=== PATIENT | female | born 1945 | race Caucasian/White ===

== ENCOUNTER 2016-08-22 08:58 | Outpatient (CLI) | payer MEDICARE, OTHER | END 2016-08-22 08:59 | disposition home or self-care (01) | DX: I25.10 Atherosclerotic heart disease of native coronary artery without angina pectoris (principal); E78.2 Mixed hyperlipidemia; Z79.899 Other long term (current) drug therapy; E55.9 Vitamin D deficiency, unspecified; R53.83 Other fatigue; I10 Essential (primary) hypertension; R73.09 Other abnormal glucose ==

== ENCOUNTER 2016-08-23 08:00 | Outpatient (CLI) | payer MEDICARE, OTHER | END 2016-08-23 23:59 | disposition home or self-care (01) | DX: R73.09 Other abnormal glucose (principal) ==

== ENCOUNTER 2016-09-03 14:00 | Outpatient (CLI) | payer MEDICARE, OTHER | END 2016-09-03 14:01 | disposition home or self-care (01) | DX: Z12.31 Encounter for screening mammogram for malignant neoplasm of breast (principal); Z85.3 Personal history of malignant neoplasm of breast ==

== ENCOUNTER 2016-09-04 13:20 | Outpatient (CLI) | payer MEDICARE, OTHER | END 2016-09-04 13:21 | disposition home or self-care (01) | DX: D72.829 Elevated white blood cell count, unspecified (principal); N39.0 Urinary tract infection, site not specified ==

== ENCOUNTER 2016-11-14 09:28 | Outpatient (CLI) | payer MEDICARE, OTHER | END 2016-11-14 09:29 | disposition home or self-care (01) | DX: I48.4 Atypical atrial flutter (principal); I10 Essential (primary) hypertension; Z95.5 Presence of coronary angioplasty implant and graft; Z98.890 Other specified postprocedural states; E78.2 Mixed hyperlipidemia ==

== ENCOUNTER 2017-07-30 14:11 | Outpatient (CLI) | payer MEDICARE, OTHER ==
[2017-07-30 14:43] LABS: ALBUMIN/GLOBULIN RATIO 1.6 (1.0-2.2); BILIRUBIN,TOTAL 0.9 mg/dL (0.2-1.0); CALCIUM 9.2 mg/dL (8.5-10.3); POTASSIUM 4.3 mmol/L (3.5-5.0); TOTAL PROTEIN 7.2 g/dL (6.7-8.2)
== END 2017-07-30 14:12 | disposition home or self-care (01) ==
LOC: LAB 14:11
PROVIDERS: ATTEND Internal Medicine Cardiovascular Disease
DX: I10 Essential (primary) hypertension (principal); Z98.890 Other specified postprocedural states; Z95.5 Presence of coronary angioplasty implant and graft; E78.2 Mixed hyperlipidemia; Z79.899 Other long term (current) drug therapy; R00.1 Bradycardia, unspecified
CPT/HCPCS: 36415; 80053; 84443

== ENCOUNTER 2017-10-08 07:29 | Outpatient (CLI) | payer MEDICARE, OTHER ==
[2017-10-08 08:16] LABS: BASOPHILS # (AUTO) 0.1 10^3/uL (0.0-0.1); BASOPHILS % (AUTO) 1.3 %; EOSINOPHILS # (AUTO) 0.1 10^3/uL (0.0-0.7); EOSINOPHILS % (AUTO) 1.7 %; HGB - HEMOGLOBIN 14.1 g/dL (12.0-16.0); LYMPHOCYTES # (AUTO) 1.2 10^3/uL (1.5-3.5); MEAN CORPUSCULAR HEMOGLOBIN 30.8 pg (27.0-31.0); MEAN CORPUSCULAR HGB CONC 34.2 g/dL (32.0-36.0); MEAN CORPUSCULAR VOLUME 89.9 fL (81.0-99.0); MEAN PLATELET VOLUME 7.9 fL (7.9-10.8); MONOCYTES # (AUTO) 0.5 10^3/uL (0.0-1.0); NEUTROPHILS # (AUTO) 3.3 10^3/uL (1.5-6.6); PLT - PLATELET COUNT 172 10^3/uL (130-450); RED BLOOD COUNT 4.57 10^6/uL (4.20-5.40); RED CELL DISTRIBUTION WIDTH 14.4 % (12.0-15.0); WHITE BLOOD COUNT 5.2 x10^3/uL (4.8-10.8)
[2017-10-08 08:26] LABS: ALBUMIN/GLOBULIN RATIO 1.5 (1.0-2.2); ALKALINE PHOSPHATASE 74 IU/L (42-121); ALT ALANINE AMINOTRANSFERASE 26 IU/L (10-60); AST ASPARTATE AMINOTRANSFERASE 27 IU/L (10-42); BILIRUBIN,TOTAL 0.7 mg/dL (0.2-1.0); BUN - BLOOD UREA NITROGEN 14 mg/dL (6-20); CALCIUM 9.5 mg/dL (8.5-10.3); CARBON DIOXIDE - CO2 24 mmol/L (21-32); CHLORIDE 103 mmol/L (101-111); CHOL/HDL RATIO 3.8 (<4.4); CHOLESTEROL 168 mg/dL; CREATININE 0.8 mg/dL (0.4-1.0); GFR - MDRD 70 (>89); GLUCOSE 122 mg/dL (70-100); HDL CHOLESTEROL 44 mg/dL; LDL CHOLESTEROL,CALCULATED 89 mg/dL; SODIUM 138 mmol/L (135-145); TOTAL PROTEIN 6.7 g/dL (6.7-8.2); VLDL CHOLESTEROL 35 mg/dL
[2017-10-08 10:05] LABS: HB2 TOTAL 14.9 g/dL; HEMOGLOBIN A1C 0.63 g/dL
== END 2017-10-08 07:30 | disposition home or self-care (01) ==
LOC: LAB 07:29
PROVIDERS: ATTEND Physician Assistant Medical
DX: Z79.899 Other long term (current) drug therapy (principal); E55.9 Vitamin D deficiency, unspecified; R73.01 Impaired fasting glucose; I48.91 Unspecified atrial fibrillation; I10 Essential (primary) hypertension
CPT/HCPCS: 36415; 80053; 80061; 82306; 83036; 83721; 85025

== ENCOUNTER 2018-02-18 15:22 | Outpatient (CLI) | payer MEDICARE, OTHER | END 2018-02-18 15:23 | disposition home or self-care (01) | LOC: LAB.R 15:22 | PROVIDERS: ATTEND Physician Assistant Medical | DX: N30.00 Acute cystitis without hematuria (principal) | CPT/HCPCS: 87086; 87181 ==

== ENCOUNTER 2018-04-14 08:28 | Outpatient (CLI) | payer MEDICARE, OTHER ==
[2018-04-14 09:00] LABS: CALCIUM 9.5 mg/dL (8.5-10.3); CREATININE 0.9 mg/dL (0.4-1.0)
== END 2018-04-14 08:29 | disposition home or self-care (01) ==
LOC: LAB 08:28
PROVIDERS: ATTEND Internal Medicine Cardiovascular Disease
DX: I10 Essential (primary) hypertension (principal)
CPT/HCPCS: 36415; 80048

== ENCOUNTER 2018-05-06 13:19 | Outpatient (CLI) | payer MEDICARE, OTHER ==
[2018-05-06 14:10] LABS: CALCIUM 9.2 mg/dL (8.5-10.3); CREATININE 0.8 mg/dL (0.4-1.0)
== END 2018-05-06 13:20 | disposition home or self-care (01) ==
LOC: LAB 13:19
PROVIDERS: ATTEND Internal Medicine Cardiovascular Disease
DX: I10 Essential (primary) hypertension (principal); E87.6 Hypokalemia
CPT/HCPCS: 36415; 80048

== ENCOUNTER 2018-06-25 15:03 | Outpatient (CLI) | payer MEDICARE, OTHER ==
[2018-06-25 17:29] LABS: RHEUMATOID FACTOR NEGATIVE (Negative)
== END 2018-06-25 15:04 ==
LOC: LAB.R 15:03
PROVIDERS: ATTEND Physician Assistant Medical
DX: M25.50 Pain in unspecified joint (principal)
CPT/HCPCS: 85651; 86038; 86140; 86200; 86430

== ENCOUNTER 2018-06-29 12:48 | Outpatient (CLI) | payer MEDICARE, OTHER ==
--- NOTE | 2018-06-29 15:17 | XRAY Report ---
Reason: ANKLE PAIN, RIGHT Procedure Date: 06/29/2018 Accession Number: [id number] / [id number] Procedure: XR - Ankle 3 View RT CPT Code: FULL RESULT: EXAM: RIGHT ANKLE RADIOGRAPHY EXAM DATE: 06/29/2018 01:10 PM. CLINICAL HISTORY: Ankle pain, right. COMPARISON: None. TECHNIQUE: 3 views. FINDINGS: There is no fracture or dislocation. The ankle mortise is symmetric. The medial malleolus region is marked with a BB. In this region, there is focal soft tissue swelling which corresponds to a mild bony protuberance. There is no periosteal reaction or suspicious osseous mass. IMPRESSION: Bony protuberance and focal soft tissue swelling. If there is concern for a primary soft tissue mass or collection in the region, consider focal ultrasound. The radiologist feels that the benign-appearing bony protuberance in conjunction with a history of impingement on shoes/boots otherwise represents a satisfactory radiographic explanation for the overlying soft tissue swelling. [facility]
== END 2018-06-29 12:49 | disposition home or self-care (01) ==
LOC: DI 12:48
PROVIDERS: ATTEND Physician Assistant Medical
DX: M25.571 Pain in right ankle and joints of right foot (principal); R22.41 Localized swelling, mass and lump, right lower limb

== ENCOUNTER 2018-07-25 09:50 | Outpatient (CLI) | payer MEDICARE, OTHER ==
--- NOTE | 2018-07-26 16:56 | MRI Report ---
Reason: ANKLE JOINT PAIN Procedure Date: 07/25/2018 Accession Number: [id number] / [id number] Procedure: MRI - Ankle RT W/O CPT Code: FULL RESULT: EXAM: RIGHT ANKLE/HINDFOOT MRI WITHOUT CONTRAST. EXAM DATE: 07/25/2018 11:21 AM. CLINICAL HISTORY: Right ankle pain and swelling for several weeks. COMPARISON: 06/29/2018 radiograph. TECHNIQUE: Multiplanar, multisequence T1-weighted and fluid-sensitive sequences of the ankle/hindfoot without contrast. Other: None. FINDINGS: Bones: No fractures or subluxations. No marrow edema. No bone lesions. Articular Cartilage: Unremarkable. Ligaments: The anterior and posterior tibiofibular, anterior and posterior talofibular, and calcaneofibular ligaments are intact. The deep and superficial deltoid and spring ligaments are intact. Anterior Tendons: The tibialis anterior, extensor hallucis longus, and extensor digitorum longus tendons are unremarkable. Medial Tendons: The tibialis posterior, flexor digitorum longus, and flexor hallucis longus tendons are unremarkable. Lateral Tendons: The peroneus brevis and longus are unremarkable. Achilles Tendon: Moderate Achilles tendinosis thickening and edema is present. Musculature: No edema or fatty atrophy. Other: No effusions. The contents of the sinus tarsi and tarsal tunnel are unremarkable. The plantar fascia is moderately thickened with edema around it. The subcutaneous tissues are unremarkable. IMPRESSION: 1. Moderate plantar fasciitis. 2. Moderate Achilles tendinosis. [facility] MUSCULOSKELETAL RADIOLOGY SECTION
== END 2018-07-25 09:51 | disposition home or self-care (01) ==
LOC: DI 09:50
PROVIDERS: ATTEND Orthopaedic Surgery Sports Medicine
DX: M25.571 Pain in right ankle and joints of right foot (principal); M72.2 Plantar fascial fibromatosis; M67.971 Unspecified disorder of synovium and tendon, right ankle and foot

== ENCOUNTER 2018-08-18 16:16 | Outpatient (CLI) | payer MEDICARE, OTHER ==
--- NOTE | 2018-08-19 08:33 | Mammography Report ---
Reason: SCREENING DANIELLA Procedure Date: 08/18/2018 Accession Number: [id number] / [id number] Procedure: [facility] - Screening Mammo w/Matt CPT Code: FULL RESULT: EXAM: Screening Mammo w/Matt DATE: 08/18/2018 4:52 PM CLINICAL HISTORY: Screening encounter. Personal history of breast cancer status post left breast lumpectomy in 2004 with chemoradiation. TECHNIQUE: Bilateral CC, laterally exaggerated CC, MLO views were obtained. COMPARISON: 09/03/2016 through 07/01/2013. FINDINGS: The breasts demonstrate scattered fibroglandular densities bilaterally. Postsurgical and posttreatment changes are seen in the left breast. Typically benign calcifications of the coarse and vascular type are seen in the right breast. No suspicious masses, clustered microcalcifications, or regions of architectural distortion are identified. IMPRESSION: Benign findings RECOMMENDATION: Routine annual screening unless otherwise clinically indicated. BIRADS CATEGORY 2: Benign findings STANDARD QUALIFYING STATEMENTS: 1. This examination was not reviewed with the aid of Computer-Aided Detection (CAD). 2. A negative or benign imaging report should not preclude biopsy if clinically suspicious findings are present. 3. Dense breasts may obscure an underlying neoplasm. 4. This examination was reviewed with the aid of 3D breast imaging (tomosynthesis).
== END 2018-08-18 16:17 | disposition home or self-care (01) ==
LOC: DI 16:16
DX: Z12.31 Encounter for screening mammogram for malignant neoplasm of breast (principal); Z85.3 Personal history of malignant neoplasm of breast
CPT/HCPCS: 77063; 77067

== ENCOUNTER 2018-10-09 15:47 | Outpatient (CLI) | payer MEDICARE, OTHER ==
[2018-10-09 16:11] LABS: CALCIUM 9.7 mg/dL (8.5-10.3); CREATININE 0.9 mg/dL (0.4-1.0); MAGNESIUM 1.8 mg/dL (1.7-2.8)
== END 2018-10-09 15:48 | disposition home or self-care (01) ==
LOC: LAB 15:47
PROVIDERS: ATTEND Internal Medicine Cardiovascular Disease
DX: I48.0 Paroxysmal atrial fibrillation (principal)
CPT/HCPCS: 36415; 80048; 83735

== ENCOUNTER 2019-01-06 08:00 | Outpatient (CLI) | payer MEDICARE, OTHER | END 2019-01-06 23:59 | disposition home or self-care (01) | LOC: LAB.R 08:00 | PROVIDERS: ATTEND Nurse Practitioner | DX: R30.0 Dysuria (principal); R32 Unspecified urinary incontinence | CPT/HCPCS: 87086 ==

== ENCOUNTER 2019-01-11 08:41 | Outpatient (CLI) | payer MEDICARE, OTHER ==
[2019-01-11 09:22] LABS: BASOPHILS % (AUTO) 0.6 %; EOSINOPHILS # (AUTO) 0.2 10^3/uL (0.0-0.7); EOSINOPHILS % (AUTO) 3.6 %; HGB - HEMOGLOBIN 14.6 g/dL (12.0-16.0); LYMPHOCYTES # (AUTO) 1.5 10^3/uL (1.5-3.5); LYMPHOCYTES % (AUTO) 24.1 %; MEAN CORPUSCULAR HEMOGLOBIN 29.3 pg (27.0-31.0); MEAN CORPUSCULAR VOLUME 88.9 fL (81.0-99.0); MEAN PLATELET VOLUME 8.4 fL (7.9-10.8); MONOCYTES # (AUTO) 0.6 10^3/uL (0.0-1.0); MONOCYTES % (AUTO) 10.5 %; NEUTROPHILS # (AUTO) 3.7 10^3/uL (1.5-6.6); NEUTROPHILS % (AUTO) 61.2 %; PLT - PLATELET COUNT 204 10^3/uL (130-450); RED BLOOD COUNT 4.96 10^6/uL (4.20-5.40); RED CELL DISTRIBUTION WIDTH 16.3 % (12.0-15.0); WHITE BLOOD COUNT 6.1 x10^3/uL (4.8-10.8)
[2019-01-11 09:48] LABS: ALBUMIN 4.2 g/dL (3.2-5.5); ALBUMIN/GLOBULIN RATIO 1.4 (1.0-2.2); ALKALINE PHOSPHATASE 74 IU/L (42-121); ALT ALANINE AMINOTRANSFERASE 18 IU/L (10-60); AST ASPARTATE AMINOTRANSFERASE 26 IU/L (10-42); BILIRUBIN,TOTAL 1.1 mg/dL (0.2-1.0); BUN - BLOOD UREA NITROGEN 16 mg/dL (6-20); CALCIUM 9.5 mg/dL (8.5-10.3); CARBON DIOXIDE - CO2 24 mmol/L (21-32); CHLORIDE 102 mmol/L (101-111); CHOL/HDL RATIO 3.5 (<4.4); CHOLESTEROL 145 mg/dL; CREATININE 0.9 mg/dL (0.4-1.0); GFR - MDRD 61 (>89); GLUCOSE 143 mg/dL (70-100); HDL CHOLESTEROL 41 mg/dL; LDL CHOLESTEROL,CALCULATED 78 mg/dL; LDL/HDL RATIO 1.9 (<4.4); SODIUM 139 mmol/L (135-145); TOTAL PROTEIN 7.2 g/dL (6.7-8.2); VLDL CHOLESTEROL 26 mg/dL
== END 2019-01-11 08:42 | disposition home or self-care (01) ==
LOC: LAB 08:41
PROVIDERS: ATTEND Nurse Practitioner
DX: E55.9 Vitamin D deficiency, unspecified (principal); I48.91 Unspecified atrial fibrillation; R73.01 Impaired fasting glucose; I10 Essential (primary) hypertension; E78.2 Mixed hyperlipidemia; Z79.899 Other long term (current) drug therapy
CPT/HCPCS: 36415; 80053; 80061; 83721; 84443; 85025

== ENCOUNTER 2019-01-29 09:22 | Outpatient (CLI) | payer MEDICARE, OTHER ==
[2019-01-29 09:50] LABS: CALCIUM 9.4 mg/dL (8.5-10.3); CREATININE 0.8 mg/dL (0.4-1.0)
[2019-01-29 09:59] LABS: HEMOGLOBIN A1C 0.74 g/dL; HEMOGLOBIN A1C % 6.7 % (4.6-6.2)
== END 2019-01-29 09:23 | disposition home or self-care (01) ==
LOC: LAB 09:22
PROVIDERS: ATTEND Nurse Practitioner
DX: R73.01 Impaired fasting glucose (principal); E87.6 Hypokalemia
CPT/HCPCS: 36415; 80048; 83036

== ENCOUNTER 2019-02-01 11:39 | Day surgery (SDC) | payer MEDICARE, OTHER ==
[2019-02-01] MEDS ORDERED: LACTATED RINGERS 1,000 ML IV ONE (11:45)
[2019-02-01] MEDS ORDERED: MIDAZOLAM 2 MG/2 ML VIAL IVP ONE (14:02)
[2019-02-01] MEDS ORDERED: LIDO GARGLE 30 ML BOTTLE ONE (14:02)
[2019-02-01] MEDS ORDERED: fentaNYL 250 MCG/5 ML VIAL IVP ONE (14:02)
[2019-02-01] MEDS ORDERED: LIDO GARGLE 30 ML BOTTLE PO ONE (14:16)
[2019-02-01 15:22] VITALS: BP 113/87
== END 2019-02-01 11:40 | disposition home or self-care (01) ==
LOC: SDS 11:39
PROVIDERS: ATTEND Internal Medicine Gastroenterology
PROC: 0DB78ZX Excision of Stomach, Pylorus, Via Natural or Artificial Opening Endoscopic, Diagnostic (ICD-10-PCS; 2019-02-01)
PROC: 0DB58ZX Excision of Esophagus, Via Natural or Artificial Opening Endoscopic, Diagnostic (ICD-10-PCS; 2019-02-01)
PROC: 0DJD8ZZ Inspection of Lower Intestinal Tract, Via Natural or Artificial Opening Endoscopic (ICD-10-PCS; principal; 2019-02-01 12:45)
PROC: 0DB98ZX Excision of Duodenum, Via Natural or Artificial Opening Endoscopic, Diagnostic (ICD-10-PCS; 2019-02-01 12:45)
DX: R10.32 Left lower quadrant pain (principal); R68.81 Early satiety; K21.9 Gastro-esophageal reflux disease without esophagitis; K31.9 Disease of stomach and duodenum, unspecified; K44.9 Diaphragmatic hernia without obstruction or gangrene; K57.30 Diverticulosis of large intestine without perforation or abscess without bleeding; I48.91 Unspecified atrial fibrillation; I10 Essential (primary) hypertension; I25.10 Atherosclerotic heart disease of native coronary artery without angina pectoris; Z85.3 Personal history of malignant neoplasm of breast; Z86.010 Personal history of colon polyps; E66.9 Obesity, unspecified; Z68.35 Body mass index [BMI] 35.0-35.9, adult
CPT/HCPCS: 36415; 43239; 45378; 83690; A9270; J3010; J7120

== ENCOUNTER 2019-02-08 10:49 | Outpatient (CLI) | payer MEDICARE, OTHER ==
[2019-02-08] MEDS ORDERED: IOVERSOL 320 50 ML VIAL ONE (11:02)
[2019-02-08] MEDS ORDERED: IOVERSOL 320 100 ML VIAL IVP ONE ×2 (11:02→12:23)
[2019-02-08] MEDS ORDERED: IOVERSOL 320 50 ML VIAL PO ONE (12:23)
--- NOTE | 2019-02-08 17:51 | CT Report ---
Reason: EVAL HIATAL HERNIA,EARLY SATIETY Procedure Date: 02/08/2019 Accession Number: [id number] / [id number] Procedure: CT - Abdomen/Pelvis W CPT Code: FULL RESULT: EXAM: CT ABDOMEN AND PELVIS EXAM DATE: 02/08/2019 12:20 PM. CLINICAL HISTORY: EVAL HIATAL Hernia, early SATIETY. COMPARISONS: None. TECHNIQUE: Routine helical CT imaging was performed through the abdomen and pelvis. IV contrast: 100 cc Optiray 320. Enteric contrast: Yes. Reconstructions: Coronal and sagittal. In accordance with CT protocol optimization, one or more of the following dose reduction techniques were utilized for this exam: automated exposure control, adjustment of mA and/or KV based on patient size, or use of iterative reconstructive technique. FINDINGS: Lung Bases: Large axial type hiatal hernia containing the fundus and upper body of the stomach Liver: Normal. No masses. Gallbladder/Bile Ducts: Layering sludge versus tiny stones. Spleen: Normal. Accessory spleen present. Pancreas: Normal. Adrenal Glands: Normal. Kidneys: 3.2 x 2.9 cm right renal cyst; other smaller cysts present bilaterally.. No masses or hydronephrosis. Peritoneal Cavity/Bowel: No free fluid, free air or adenopathy. No acute inflammatory process. The appendix is not definitely seen. Incompletely distended/opacified colon. Pelvic Organs: The bladder and pelvic organs are unremarkable except for uterine calcifications. Vasculature: No aneurysms or other significant abnormality. Bones: Degenerative grade 1 anterior listhesis L4 on L5 with disk space narrowing and vacuum phenomenon at this level. Scattered other degenerative changes. Other: None. IMPRESSION: 1. Moderate hiatal hernia. 2. Renal cysts 3. Atrophic appearing uterus with calcifications. 4. Degenerative change in the spine with anterior listhesis L4 on L5. 5. Incompletely distended/opacified colon; a colonic lesion is not excluded by this study. Suggest correlation with history of colonoscopy and anemia. 6. Layering sludge versus tiny gallbladder stones could be further evaluated by ultrasound if clinically warranted. [facility] ADDENDUM: 02/15/19 15:27 The study is additionally reviewed with the referring surgeon Dr. Sidhu. Underlying, is a sliding-type hiatal hernia with a component of the stomach that arises from the fundus of the stomach having taken a diverticulum-like configuration. This portion of the stomach resides within the chest, has a thickened wall at its neck and appears to be twisted and contains fecalized material. This portion of the fundus has therefore undergone a organoaxial-type rotation with imaging appearance supportive of the current plan for surgical correction.
== END 2019-02-08 10:50 | disposition home or self-care (01) ==
LOC: DI 10:49
PROVIDERS: ATTEND Internal Medicine Gastroenterology
DX: K44.9 Diaphragmatic hernia without obstruction or gangrene (principal); Q61.02 Congenital multiple renal cysts; M47.816 Spondylosis without myelopathy or radiculopathy, lumbar region; M43.16 Spondylolisthesis, lumbar region
CPT/HCPCS: 74177; Q9967

== ENCOUNTER 2019-03-19 10:07 | Outpatient (CLI) | payer MEDICARE, OTHER ==
[2019-03-19 10:37] LABS: CALCIUM 10.4 mg/dL (8.5-10.3); CREATININE 0.7 mg/dL (0.4-1.0); MAGNESIUM 1.9 mg/dL (1.7-2.8)
== END 2019-03-19 10:08 | disposition home or self-care (01) ==
LOC: LAB 10:07
PROVIDERS: ATTEND Physician Assistant Medical
DX: I48.0 Paroxysmal atrial fibrillation (principal)
CPT/HCPCS: 36415; 80048; 83735

== ENCOUNTER 2019-05-03 08:01 | Outpatient (CLI) | payer MEDICARE, OTHER ==
[2019-05-03 08:33] LABS: HB2 TOTAL 14.7 g/dL; HEMOGLOBIN A1C 0.58 g/dL; HEMOGLOBIN A1C % 5.8 % (4.6-6.2)
== END 2019-05-03 08:02 | disposition home or self-care (01) ==
LOC: LAB 08:01
PROVIDERS: ATTEND Nurse Practitioner
DX: R73.01 Impaired fasting glucose (principal)
CPT/HCPCS: 36415; 83036

== ENCOUNTER 2019-07-29 09:02 | Outpatient (CLI) | payer MEDICARE, OTHER ==
[2019-07-29 09:23] LABS: HGB - HEMOGLOBIN 13.9 g/dL (12.0-16.0); MEAN CORPUSCULAR HEMOGLOBIN 30.5 pg (27.0-31.0); MEAN CORPUSCULAR HGB CONC 33.1 g/dL (32.0-36.0); MEAN CORPUSCULAR VOLUME 92.1 fL (81.0-99.0); MEAN PLATELET VOLUME 9.5 fL (7.9-10.8); RED BLOOD COUNT 4.56 10^6/uL (4.20-5.40); RED CELL DISTRIBUTION WIDTH 13.3 % (12.0-15.0); WHITE BLOOD COUNT 5.2 x10^3/uL (4.8-10.8)
[2019-07-29 09:29] LABS: CALCIUM 9.6 mg/dL (8.5-10.3); CREATININE 0.8 mg/dL (0.4-1.0)
== END 2019-07-29 09:03 | disposition home or self-care (01) ==
LOC: LAB 09:02
PROVIDERS: ATTEND Surgery
DX: K44.9 Diaphragmatic hernia without obstruction or gangrene (principal)
CPT/HCPCS: 36415; 80048; 85027

== ENCOUNTER 2019-10-13 14:13 | Outpatient (CLI) | payer MEDICARE, OTHER ==
[2019-10-13 18:14] LABS: RHEUMATOID FACTOR NEGATIVE (Negative)
== END 2019-10-13 14:14 | disposition home or self-care (01) ==
LOC: LAB 14:13
PROVIDERS: ATTEND Nurse Practitioner
DX: M25.512 Pain in left shoulder (principal)
CPT/HCPCS: 36415; 85651; 86140; 86430

== ENCOUNTER 2020-09-20 07:53 | Outpatient (CLI) | payer MEDICARE, OTHER ==
--- NOTE | 2020-09-20 15:37 | Ultrasound Report ---
PROCEDURE: Head or Neck Soft Tissue INDICATIONS: THYROID NODULE TECHNIQUE: Real time scanning was performed of the neck region of interest, with image documentation . COMPARISON: None. FINDINGS: Right thyroid lobe: 3.2 x 1.6 x 1.7 cm. Less than 5 mm nodules are noted. Otherwise homogeneous echot exture. Left thyroid lobe: 5.0 x 1.4 x 1.6 cm. Nodules are present. Please see below for detail. Isthmus: 4.2 mm in thickness. Nodule 1 Location: Left mid; Size: 1.2 x 0.8 x 1.1 cm; Composition: spongiform; Echogenicity: Hypoechoic; Shape: Wider than tall. Margins: Smooth Calcifications: punctate. ACR TI RADS score: 5; TR4 moderately suspicious Nodule 2 Location: Left mid medial; Size: 0.5 x 0.3 x 0.6 cm; Composition: Solid; Echogenicity: Hypoechoic; Shape: Wider than tall. Margins: Smooth Calcifications: punctate. ACR TI RADS score: 7; TR 5, highly suspicious Nodule 13Location: Left mid anterior; Size: 0.5 x 0.3 x 0.4 cm; Composition: Predominantly cystic; Echogenicity: Anechoic; Shape: Wider than tall. Margins: Smooth Calcifications: none. ACR TI RADS score: 0; TR1, benign IMPRESSION: 1. Bilateral thyroid nodules. 2. Nodular #2 is a TR5 nodule. There is of its relative small size, recommend close imaging follow-up . Please see enclosed follow-up recommendation. TR1: no FNA required TR2: no FNA required TR3: ?1.5 cm follow up, ?2.5 cm FNA follow up: 1, 3 and 5 years TR4: ?1.0 cm follow up, ?1.5 cm FNA follow up: 1, 2, 3 and 5 years TR5: ?0.5 cm follow up, ?1.0 cm FNA annual follow up for up to 5 years Reviewed by: Deandre Culver MD on 09/20/2020 3:36 PM PST Approved by: Deandre Culver MD on 09/20/2020 3:36 PM PST Station ID: [id number]
== END 2020-09-20 07:54 | disposition home or self-care (01) ==
LOC: DI 07:53
PROVIDERS: ATTEND Nurse Practitioner
DX: E04.2 Nontoxic multinodular goiter (principal)

== ENCOUNTER 2021-11-30 11:30 | Outpatient (CLI) | payer MEDICARE, OTHER ==
[2021-11-30 11:48] LABS: BASOPHILS # (AUTO) 0.1 10^3/uL (0.0-0.1); BASOPHILS % (AUTO) 0.9 %; EOSINOPHILS # (AUTO) 0.2 10^3/uL (0.0-0.7); HCT - HEMATOCRIT 44.6 % (37.0-47.0); LYMPHOCYTES # (AUTO) 1.2 10^3/uL (1.5-3.5); LYMPHOCYTES % (AUTO) 17.8 %; MEAN CORPUSCULAR HEMOGLOBIN 30.2 pg (27.0-31.0); MEAN CORPUSCULAR HGB CONC 33.6 g/dL (32.0-36.0); MEAN CORPUSCULAR VOLUME 89.9 fL (81.0-99.0); MEAN PLATELET VOLUME 9.3 fL (7.9-10.8); MONOCYTES # (AUTO) 0.6 10^3/uL (0.0-1.0); MONOCYTES % (AUTO) 8.9 %; NEUTROPHILS # (AUTO) 4.7 10^3/uL (1.5-6.6); NEUTROPHILS % (AUTO) 69.1 %; PLT - PLATELET COUNT 204 10^3/uL (130-450); RED BLOOD COUNT 4.96 10^6/uL (4.20-5.40); RED CELL DISTRIBUTION WIDTH 13.8 % (12.0-15.0); WHITE BLOOD COUNT 6.8 x10^3/uL (4.8-10.8)
[2021-11-30 12:07] LABS: ALBUMIN/GLOBULIN RATIO 1.3 (1.0-2.2); ALKALINE PHOSPHATASE 78 IU/L (42-121); ALT ALANINE AMINOTRANSFERASE 21 IU/L (10-60); AST ASPARTATE AMINOTRANSFERASE 24 IU/L (10-42); BILIRUBIN,TOTAL 1.5 mg/dL (0.2-1.0); BUN - BLOOD UREA NITROGEN 15 mg/dL (6-20); CALCIUM 9.3 mg/dL (8.5-10.3); CARBON DIOXIDE - CO2 24 mmol/L (21-32); CHLORIDE 105 mmol/L (101-111); CHOL/HDL RATIO 2.5 (<4.4); CHOLESTEROL 129 mg/dL; CREATININE 0.6 mg/dL (0.4-1.0); GFR - MDRD 97 (>89); GLUCOSE 151 mg/dL (70-100); HDL CHOLESTEROL 51 mg/dL; LDL CHOLESTEROL,CALCULATED 56 mg/dL; LDL/HDL RATIO 1.1 (<4.4); POTASSIUM 4.3 mmol/L (3.5-5.0); SODIUM 138 mmol/L (135-145); TOTAL PROTEIN 7.2 g/dL (6.7-8.2); TRIGLYCERIDES 112 mg/dL; VLDL CHOLESTEROL 22 mg/dL
[2021-11-30 12:18] LABS: THYROID STIMULATING HORMONE 2.03 uIU/mL (0.34-5.60)
== END 2021-11-30 11:31 | disposition home or self-care (01) ==
LOC: LAB 11:30
PROVIDERS: ATTEND Nurse Practitioner
DX: I10 Essential (primary) hypertension (principal); E78.2 Mixed hyperlipidemia
CPT/HCPCS: 36415; 80053; 80061; 83721; 84443; 85025

== ENCOUNTER 2022-01-01 14:18 | Outpatient (CLI) | payer MEDICARE, OTHER ==
--- NOTE | 2022-01-01 17:07 | Ultrasound Report ---
PROCEDURE: Head or Neck Soft Tissue INDICATIONS: THYROID NODULE TECHNIQUE: Real-time scanning was performed of the thyroid gland, with image documentation. COMPARISON: 09/20/2020 FINDINGS: Right: Thyroid lobe measures 3.7 x 1.2 x 1.6 cm, and is heterogeneous in echotexture. Left: Thyroid lobe measures 4.4 x 1.7 x 1.5 cm, and is heterogeneous in echotexture. Isthmus: 2.4 mm thick. Nodule number: One Location: Mid pole left thyroid lobe Size: 1.3 x 1 x 1.1 cm, previously measures 1.2 x 0.8 x 1.1 cm. Composition: Predominantly cystic Echogenicity: Hypoechoic Shape: wider than tall. Margins: Lobulated Echogenic foci: None Total points: 5 ACR TI-RADS category: Moderately suspicious Nodule number: Two Location: Medial aspect of mid pole left thyroid lobe Size: 0.5 x 0.3 x 0.5 cm. Unchanged from prior study Composition: Predominantly solid Echogenicity: Hypoechoic Shape: wider than tall. Margins: Smooth Echogenic foci: None Total points: 4 ACR TI-RADS category: Moderately suspicious Nodule number: Three Location: Anterior aspect of mid pole left thyroid lobe Size: 0.6 x 0.3 x 0.5 cm, previously 0.5 x 0.3 x 0.4 cm. Composition: Predominantly cystic Echogenicity: Hypoechoic Shape: wider than tall. Margins: Smooth Echogenic foci: None Total points: 2 ACR TI-RADS category: Not suspicious IMPRESSION: Patient's known left thyroid nodules are essentially unchanged in size and appearance. No new thyroid nodule is seen. Continued ultrasound follow-up is recommended. ACR TI-RADS definitions and recommendations: TI-RADS 1 (benign): 0 points. FNA not needed. TI-RADS 2 (not suspicious): 2 points. FNA not needed. TI-RADS 3 (mildly suspicious): 3 points. "FNA if 2.5 cm or larger, follow up if 1.5 cm or larger (at 1, 3, and 5 years). TI-RADS 4 (moderately suspicious): 4-6 points. "FNA if 1.5 cm or larger, follow up if 1 cm or larger (at 1, 2, 3, and 5 years). TI-RADS 5 (highly suspicious): 7 points or more. "FNA if 1 cm or larger, follow up if 0.5 cm or larger (every year for 5 years). Reviewed by: Maximus Kumar MD on 01/01/2022 5:06 PM PDT Approved by: Maximus Kumar MD on 01/01/2022 5:06 PM PDT Station ID: [id number]
== END 2022-01-01 14:19 | disposition home or self-care (01) ==
LOC: DI 14:18
PROVIDERS: ATTEND Nurse Practitioner
DX: E04.2 Nontoxic multinodular goiter (principal)

== ENCOUNTER 2022-03-13 08:19 | Outpatient (CLI) | payer MEDICARE, OTHER ==
[2022-03-13 08:50] LABS: ESTIMATED AVERAGE GLUCOSE 128 mg/dL (70-100); HEMOGLOBIN A1c% 6.1 % (4.27-6.07)
[2022-03-13 11:14] LABS: CREATININE,URINE 85.6 mg/dL; MICROALBUM/CREATININE RATIO,UR 22.2 ug/mg (<30.0); MICROALBUMIN,URINE 1.9 mg/dL (0-300.0)
== END 2022-03-13 08:20 | disposition home or self-care (01) ==
LOC: LAB 08:19
PROVIDERS: ATTEND Nurse Practitioner
DX: E11.42 Type 2 diabetes mellitus with diabetic polyneuropathy (principal)
CPT/HCPCS: 36415; 82043; 82570; 82607; 83036

== ENCOUNTER 2022-09-12 09:56 | Outpatient (CLI) | payer MEDICARE, OTHER ==
[2022-09-12 10:29] LABS: CALCIUM 9.1 mg/dL (8.5-10.3); CREATININE 0.6 mg/dL (0.4-1.0); POTASSIUM 4.3 mmol/L (3.5-5.0)
== END 2022-09-12 09:57 | disposition home or self-care (01) ==
LOC: LAB 09:56
PROVIDERS: ATTEND Physician Assistant Medical
DX: I48.0 Paroxysmal atrial fibrillation (principal)
CPT/HCPCS: 36415; 80048; 83735

== ENCOUNTER 2022-09-17 12:33 | Outpatient (CLI) | payer MEDICARE, OTHER ==
[2022-09-17 12:57] LABS: BASOPHILS # (AUTO) 0.1 10^3/uL (0.0-0.1); BASOPHILS % (AUTO) 0.7 %; EOSINOPHILS # (AUTO) 0.1 10^3/uL (0.0-0.7); EOSINOPHILS % (AUTO) 0.8 %; HCT - HEMATOCRIT 44.5 % (37.0-47.0); HGB - HEMOGLOBIN 14.5 g/dL (12.0-16.0); LYMPHOCYTES # (AUTO) 0.8 10^3/uL (1.5-3.5); LYMPHOCYTES % (AUTO) 7.8 %; MEAN CORPUSCULAR HEMOGLOBIN 29.8 pg (27.0-31.0); MEAN CORPUSCULAR HGB CONC 32.6 g/dL (32.0-36.0); MEAN CORPUSCULAR VOLUME 91.4 fL (81.0-99.0); MEAN PLATELET VOLUME 9.9 fL (7.9-10.8); MONOCYTES % (AUTO) 9.7 %; NEUTROPHILS % (AUTO) 80.8 %; PLT - PLATELET COUNT 201 10^3/uL (130-450); RED BLOOD COUNT 4.87 10^6/uL (4.20-5.40); RED CELL DISTRIBUTION WIDTH 14.1 % (12.0-15.0); WHITE BLOOD COUNT 9.8 x10^3/uL (4.8-10.8)
[2022-09-17 13:32] LABS: THYROID STIMULATING HORMONE 1.34 uIU/mL (0.34-5.60)
[2022-09-17 13:37] LABS: ESTIMATED AVERAGE GLUCOSE 134 mg/dL (70-100); HEMOGLOBIN A1c% 6.3 % (4.27-6.07)
--- NOTE | 2022-09-17 15:59 | DEXA Report ---
PROCEDURE: Dexa Spine and/or Hip INDICATIONS: POST MENOPAUSAL TECHNIQUE: Dual energy x-ray absorptiometry (DXA) was performed on a Film Fresh System. Regions measur ed are the AP Spine, femoral neck, and if needed forearm. COMPARISON: None. FINDINGS: Lumbar Spine: Bone Mineral Density 1.2-0 g/cm/cm,T score 0.3, normal Left Femoral Neck: Bone Mineral Density 0.873 g/cm/cm, T score -2.1, osteopenia Left Hip: Bone Mineral Density 1.002 g/cm/cm,T score 0.0, normal (T score greater or equal to -1.0: NORMAL) (T score from -1.1 to -2.4: OSTEOPENIA) (T score less than or equal to -2.5 to: OSTEOPOROSIS) Impression: Left femoral neck osteopenia. Patients with diagnosis of osteoporosis or osteopenia should have regular bone mineral density assess ment. For those eligible for Medicare, routine testing is allowed once every 2 years. Testing frequ ency can be increased for patients who have rapidly progressing disease or for those who are receivin g medical therapy to restore bone mass. Reviewed by: Moira Decker MD, PhD on 09/17/2022 3:58 PM PST Approved by: Moira Decker MD, PhD on 09/17/2022 3:58 PM PST Station ID: [id number]
[2022-09-17 19:26] LABS: ALBUMIN 4.1 g/dL (3.2-5.5); ALBUMIN/GLOBULIN RATIO 1.5 (1.0-2.2); ALKALINE PHOSPHATASE 86 IU/L (42-121); ALT ALANINE AMINOTRANSFERASE 33 IU/L (10-60); AST ASPARTATE AMINOTRANSFERASE 38 IU/L (10-42); BILIRUBIN,TOTAL 1.1 mg/dL (0.2-1.0); BUN - BLOOD UREA NITROGEN 16 mg/dL (6-20); CALCIUM 9.7 mg/dL (8.5-10.3); CARBON DIOXIDE - CO2 23 mmol/L (21-32); CHLORIDE 100 mmol/L (101-111); CHOL/HDL RATIO 2.9 (<4.4); CHOLESTEROL 147 mg/dL; CREATININE 0.7 mg/dL (0.4-1.0); GFR - MDRD 81 (>89); GLUCOSE 144 mg/dL (70-100); HDL CHOLESTEROL 50 mg/dL; LDL CHOLESTEROL,CALCULATED 80 mg/dL; LDL/HDL RATIO 1.6 (<4.4); POTASSIUM 4.4 mmol/L (3.5-5.0); SODIUM 137 mmol/L (135-145); TOTAL PROTEIN 6.9 g/dL (6.7-8.2); TRIGLYCERIDES 86 mg/dL; VLDL CHOLESTEROL 17 mg/dL
== END 2022-09-17 12:34 | disposition home or self-care (01) ==
LOC: DI 12:33
PROVIDERS: ATTEND Nurse Practitioner
DX: M85.88 Other specified disorders of bone density and structure, other site (principal); E11.9 Type 2 diabetes mellitus without complications; Z78.0 Asymptomatic menopausal state; E78.2 Mixed hyperlipidemia; I48.91 Unspecified atrial fibrillation
CPT/HCPCS: 36415; 80053; 80061; 82043; 82570; 83036; 83721; 84443; 85025

== ENCOUNTER 2022-09-17 12:34 | Outpatient (CLI) | payer MEDICARE, OTHER ==
--- NOTE | 2022-09-18 11:30 | Mammography Report ---
BILATERAL DIGITAL SCREENING MAMMOGRAM 3D/2D WITH EXAGGERATED CC: 09/17/2022 CLINICAL: Routine screening. Personal history of left breast cancer. Comparison is made to exams dated: 08/18/2018 mammogram, 09/03/2016 mammogram, 05/16/2015 mammogram, mammogram, 06/17/2012 mammogram, and 11/22/2011 mammogram - [facility]. Both breasts are heterogeneously dense, which may obscure small masses (category c / 51-75% glandular tissue). There are benign calcifications in both breasts. There also are benign vascular calcifications in tess th breasts. Additionally, there are benign post operative findings in the left breast. No significant masses, calcifications, or other findings are seen in either breast. There has been no significant interval change. IMPRESSION: BENIGN There is no mammographic evidence of malignancy. A 1 year screening mammogram is recommended. This exam was interpreted at Station ID: [id number]. NOTE: For mammograms, a report in lay terms will be sent to the patient. Approximately 15% of breast malignancies will not be visualized mammographically. In the management of a palpable breast mass, a negative mammogram must not discourage biopsy of a clinically suspicious lesion. Electronically Signed By: Missy harvey/jerardo:09/17/2022 18:12:54 ACR BI-RADS Category 2: Benign Finding(s) 3342F PARENCHYMAL PATTERN: (D) - The breast(s) demonstrate(s) heterogeneously dense fibroglandular etta lyles. BI-RADS CATEGORY: (2) - 2 RECOMMENDATION: (ANNUAL) - Recommend routine annual screening mammography. [id number] 1 year screening LATERALITY: (B)
== END 2022-09-17 12:35 | disposition home or self-care (01) ==
LOC: DI 12:34
PROVIDERS: ATTEND Nurse Practitioner
DX: Z12.31 Encounter for screening mammogram for malignant neoplasm of breast (principal); Z85.3 Personal history of malignant neoplasm of breast

== ENCOUNTER 2023-06-06 13:45 | Outpatient (CLI) | payer MEDICARE, OTHER ==
[2023-06-06 14:15] LABS: CREATININE 0.7 mg/dL (0.6-1.3); POTASSIUM 3.9 mmol/L (3.5-4.5)
[2023-06-06 21:22] LABS: ESTIMATED AVERAGE GLUCOSE 143 mg/dL (70-100); HEMOGLOBIN A1c% 6.6 % (4.27-6.07)
== END 2023-06-06 13:46 | disposition home or self-care (01) ==
LOC: LAB 13:45
PROVIDERS: ATTEND Physician Assistant Medical
DX: I48.0 Paroxysmal atrial fibrillation (principal); E11.9 Type 2 diabetes mellitus without complications
CPT/HCPCS: 36415; 80048; 82043; 82570; 83036; 83735

== ENCOUNTER 2023-06-07 08:00 | Outpatient (CLI) | payer MEDICARE, OTHER ==
[2023-06-07 11:23] LABS: CREATININE,URINE 108.3 mg/dL; MICROALBUMIN,URINE 2.6 mg/dL
== END 2023-06-07 23:59 | disposition home or self-care (01) ==
LOC: LAB 08:00
PROVIDERS: ATTEND Nurse Practitioner
DX: E11.9 Type 2 diabetes mellitus without complications (principal)
CPT/HCPCS: 82043; 82570

== ENCOUNTER 2023-07-11 07:48 | Outpatient (CLI) | payer MEDICARE, OTHER ==
[2023-07-11 08:03] LABS: BASOPHILS # (AUTO) 0.1 10^3/uL (0.0-0.1); BASOPHILS % (AUTO) 1.2 %; EOSINOPHILS # (AUTO) 0.2 10^3/uL (0.0-0.7); EOSINOPHILS % (AUTO) 3.2 %; HCT - HEMATOCRIT 43.5 % (37.0-47.0); HGB - HEMOGLOBIN 14.2 g/dL (12.0-16.0); LYMPHOCYTES # (AUTO) 1.4 10^3/uL (1.5-3.5); LYMPHOCYTES % (AUTO) 20.4 %; MEAN CORPUSCULAR HEMOGLOBIN 29.8 pg (27.0-31.0); MEAN CORPUSCULAR HGB CONC 32.6 g/dL (32.0-36.0); MEAN CORPUSCULAR VOLUME 91.4 fL (81.0-99.0); MEAN PLATELET VOLUME 9.9 fL (7.9-10.8); MONOCYTES # (AUTO) 0.7 10^3/uL (0.0-1.0); MONOCYTES % (AUTO) 9.8 %; NEUTROPHILS # (AUTO) 4.5 10^3/uL (1.5-6.6); NEUTROPHILS % (AUTO) 65.1 %; PLT - PLATELET COUNT 181 10^3/uL (130-450); RED BLOOD COUNT 4.76 10^6/uL (4.20-5.40); RED CELL DISTRIBUTION WIDTH 14.4 % (12.0-15.0); WHITE BLOOD COUNT 6.9 x10^3/uL (4.8-10.8)
[2023-07-11 08:16] LABS: CALCIUM 9.7 mg/dL (8.5-10.3); CREATININE 0.7 mg/dL (0.6-1.3); POTASSIUM 3.9 mmol/L (3.5-4.5)
== END 2023-07-11 07:49 | disposition home or self-care (01) ==
LOC: LAB 07:48
PROVIDERS: ATTEND Internal Medicine Cardiovascular Disease
DX: I48.0 Paroxysmal atrial fibrillation (principal)
CPT/HCPCS: 36415; 80048; 85025

== ENCOUNTER 2023-08-24 14:42 | Emergency (ER) | payer MEDICARE, OTHER ==
--- NOTE | 2023-08-24 15:19 | ED Physician Documentation ---
PD HPI CHEST PAIN - Stated complaint Stated Complaint: CHEST PX - Chief complaint Chief Complaint: Cardiac - History obtained from History obtained from: Patient - History of Present Illness Timing - onset: How many hours ago (3) Timing - duration: Hours (several) Timing - details: Gradual onset Pain level max: 2 Pain level now: 2 Quality: Pain. No: Pressure, Sharp, Tearing, Dull, Throbbing, Indigestion Location: Other (The pain is all over, right lower, left lower and center upper. She states constant.) Radiation: No: Jaw, Neck, Back, Abdominal, Left upper extremity, Right upper extremity Improved by: Nothing Associated symptoms: Cough. No: Shortness of air, Diaphoresis, Nausea, Vomiting, Feeling faint / dizzy, General Weakness, Palpitations - Additional information Additional information: Patient is a 78-year-old female who states that she has had cough and congestion for the past 3 days. No fevers. No chills. She states that about 2 to 3 hours ago she noticed that she had chest pain. When asked to describe what the pain feels like she states "it hurts". Unable to describe any further. She states that she had old nitroglycerin at home, took 2 without any change in her chest pain. Decided at that point to come into the emergency department. She states she does not know what medication she takes at home. Does not have a list with her. She states that she does have a care professional at [facility]. She states that she has never had a cardiac stent or bypass. She states that she had a stress test "a long time ago". She states nothing changes the pain. No change with walking, inspiration, exertion or rest.She states no change with coughing. No recent travel. No other recent illnesses besides the current URI symptoms. 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 Cardiovascular: Coronary stent HEENT: Cataracts - Present Medications Home Medications: Ambulatory Orders Medication Instructions Recorded Confirmed Isosorbide Mononitrate [Imdur] 30 mg PO DAILY 10/25/13 08/24/23 Metoprolol Tartrate [Lopressor] 100 mg PO BID 10/25/13 08/24/23 Rosuvastatin [Crestor] 200 mg PO DAILY 10/25/13 08/24/23 Potassium Chloride 200 meq PO DAILY 08/29/15 08/24/23 Apixaban [Eliquis] 5 mg PO BID 02/01/19 08/24/23 Amlodipine Besylate [Norvasc] 5 mg PO DAILY 08/24/23 08/24/23 Ascorbic Acid [Vitamin C] 500 mg PO DAILY 08/24/23 08/24/23 Biotin 10,000 mcg PO DAILY 08/24/23 08/24/23 Cholecalciferol [Vitamin D3] 400 unit PO DAILY 08/24/23 08/24/23 Cyanocobalamin (Vitamin B-12) 1,000 mcg PO DAILY 08/24/23 08/24/23 [Vitamin B-12] Magnesium Oxide [Mag Ox] 400 mg PO BID 08/24/23 08/24/23 Nitroglycerin [Nitrostat] 0.4 mg SL [id number] 08/24/23 08/24/23 Solifenacin Succinate [Vesicare] 10 mg ORAL DAILY 08/24/23 08/24/23 Sotalol [Betapace] 120 mg PO BID 08/24/23 08/24/23 - Allergies Allergies/Adverse Reactions: Allergies Allergy/AdvReac Type Severity Reaction Status Date / Time prochlorperazine edisylate * Allergy Severe cant Verified 08/24/23 14:46 [From Compazine] swallow prochlorperazine maleate * Allergy Severe cant Verified 08/24/23 14:46 [From Compazine] swallow Kjijoet-UBZ-XmU Reductase AdvReac Intermediate muscle pain Verified 08/24/23 14:46 Inhibitor [Lpcwaon-Grx-Isz Reductase Inhibitor] diltiazem AdvReac Hallucinati Verified 08/24/23 14:46 ons hydrocodone AdvReac Hallucinati Verified 08/24/23 14:46 ons - Social History Does the pt smoke?: No Smoking Status: Never smoker Does the pt drink ETOH?: No Does the pt have substance abuse?: No - Immunizations Immunizations are current?: Yes PD ED PE NORMAL - Vitals Vital signs reviewed: Yes - General General: Alert and oriented X 3, No acute distress - HEENT HEENT: Atraumatic, PERRL, Moist mucous membranes - Neck Neck: Supple, no meningeal sign, No bony TTP - Cardiac Cardiac: Strong equal pulses, Other (Irregularly irregular) - Respiratory Respiratory: No respiratory distress, Clear bilaterally - Abdomen Abdomen: Soft, Non tender, Non distended - Back Back: No spinal TTP - Derm Derm: Warm and dry - Extremities Extremities: No edema, No calf tenderness / cord - Neuro Neuro: Alert and oriented X 3, 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 Relevant findings are: Rate: Rate (enter#) (108) Rhythm: Atrial fibrillation [place]: Normal QRS: Normal Ischemia: Normal ST segments, ST depression (minimal v4-6) - Labs Labs: Laboratory Tests 08/24/23 08/24/23 08/24/23 15:30 15:30 15:30 WBC 6.2 RBC 4.56 Hgb 13.9 Hct 41.5 MCV 91.0 MCH 30.5 MCHC 33.5 RDW 14.5 Plt Count 167 MPV 10.1 Neut # (Auto) 4.7 Lymph # (Auto) 0.5 L [place] # (Auto) 1.0 Eos # (Auto) 0.0 Baso # (Auto) 0.1 Absolute Nucleated RBC 0.00 Nucleated RBC % 0.0 Sodium 139 Potassium 3.7 Chloride 102 Carbon Dioxide 24 Anion Gap 13.0 BUN 13 Creatinine 0.7 Estimated GFR (MDRD) 81 L Glucose 152 H Calcium 9.5 Total Bilirubin 1.2 H AST 27 ALT 17 Alkaline Phosphatase 64 Troponin I High Sens 7.9 Total Protein 6.6 Albumin 4.0 Globulin 2.6 Albumin/Globulin Ratio 1.5 Lipase < 10 L Nasal Adenovirus (PCR) NOT DETECTED Nasal B. parapertussis DNA (PCR) NOT DETECTED Nasal Coronavir 229E PCR NOT DETECTED Nasal Coronavir HKU1 PCR NOT DETECTED Nasal Coronavir NL63 PCR NOT DETECTED Nasal Coronavir OC43 PCR NOT DETECTED Nasal Enterovir/Rhinovir PCR NOT DETECTED Nasal Influ A H1 2009 PCR DETECTED A Nasal Influenza B PCR NOT DETECTED Nasal Parainfluen 1 PCR NOT DETECTED Nasal Parainfluen 2 PCR NOT DETECTED Nasal Parainfluen 3 PCR NOT DETECTED Nasal Parainfluen 4 PCR NOT DETECTED Nasal RSV (PCR) NOT DETECTED Nasal B.pertussis DNA PCR NOT DETECTED Nasal C.pneumoniae (PCR) NOT DETECTED Amarjit Human Metapneumo PCR NOT DETECTED Nasal M.pneumoniae (PCR) NOT DETECTED Nasal SARS-CoV-2 (PCR) NOT DETECTED 08/24/23 17:10 WBC RBC Hgb Hct MCV MCH MCHC RDW Plt Count MPV Neut # (Auto) Lymph # (Auto) [place] # (Auto) Eos # (Auto) Baso # (Auto) Absolute Nucleated RBC Nucleated RBC % Sodium Potassium Chloride Carbon Dioxide Anion Gap BUN Creatinine Estimated GFR (MDRD) Glucose Calcium Total Bilirubin AST ALT Alkaline Phosphatase Troponin I High Sens 7.2 Total Protein Albumin Globulin Albumin/Globulin Ratio Lipase Nasal Adenovirus (PCR) Nasal B. parapertussis DNA (PCR) Nasal Coronavir 229E PCR Nasal Coronavir HKU1 PCR Nasal Coronavir NL63 PCR Nasal Coronavir OC43 PCR Nasal Enterovir/Rhinovir PCR Nasal Influ A H1 2009 PCR Nasal Influenza B PCR Nasal Parainfluen 1 PCR Nasal Parainfluen 2 PCR Nasal Parainfluen 3 PCR Nasal Parainfluen 4 PCR Nasal RSV (PCR) Nasal B.pertussis DNA PCR Nasal C.pneumoniae (PCR) Amarjit Human Metapneumo PCR Nasal M.pneumoniae (PCR) Nasal SARS-CoV-2 (PCR) - Rads (name of study) cxr Relevant Findings:: Final report received, See rad report PD Medical Decision Making - ED course Complexity details: reviewed results, re-evaluated patient, considered differential (No ST elevation AK, no aortic dissection, no PE, no tension pneumothorax, no aortic aneurysm), d/w patient ED course: 78-year-old female with what appears to be body aches and slight chest pain secondary to influenza A. Does not have evidence of pneumonia on chest x-ray. No significant lab abnormalities. High sensitive troponin is negative x 2. No acute abnormalities on EKG. Symptoms not consistent with unstable angina. No evidence of myocarditis/pericarditis. We will continue supportive care and have her follow-up with her doctor for further care. She should have a cardiac stress test after her influenza A has resolved. No evidence of sepsis. Patient is well-appearing, nontoxic. Patient counseled regarding signs and symptoms for which I believe and urgent re-evaluation would be necessary. Patient with good understanding of and agreement to plan and is comfortable going home at this time This document was made in part using voice recognition software. While efforts are made to proofread this document, sound alike and grammatical errors may occur. Departure - Departure Disposition: 01 Home, Self Care Clinical Impression: Influenza A Chest pain Qualifiers: Chest pain type: unspecified Qualified Code(s): R07.9 - Chest pain, unspecified Condition: Good Instructions: ED Chest Pain Atypical Unkn Cause, ED Flu Follow-Up: Sam Denis MD [Physician No Access] - Comments: Continue your current medications at home. Please follow-up with your doctor and your care professional for further care. After you are over influenza A, you should have a cardiac stress test scheduled for restratification. Please return if you worsen. Forms: PCP List Discharge Date/Time: 08/24/23 17:52
[2023-08-24 15:40] LABS: BASOPHILS # (AUTO) 0.1 10^3/uL (0.0-0.1); BASOPHILS % (AUTO) 0.8 %; EOSINOPHILS % (AUTO) 0.2 %; HCT - HEMATOCRIT 41.5 % (37.0-47.0); HGB - HEMOGLOBIN 13.9 g/dL (12.0-16.0); LYMPHOCYTES # (AUTO) 0.5 10^3/uL (1.5-3.5); LYMPHOCYTES % (AUTO) 7.6 %; MEAN CORPUSCULAR HEMOGLOBIN 30.5 pg (27.0-31.0); MEAN CORPUSCULAR HGB CONC 33.5 g/dL (32.0-36.0); MEAN PLATELET VOLUME 10.1 fL (7.9-10.8); MONOCYTES % (AUTO) 15.3 %; NEUTROPHILS # (AUTO) 4.7 10^3/uL (1.5-6.6); NEUTROPHILS % (AUTO) 75.6 %; PLT - PLATELET COUNT 167 10^3/uL (130-450); RED BLOOD COUNT 4.56 10^6/uL (4.20-5.40); RED CELL DISTRIBUTION WIDTH 14.5 % (12.0-15.0); WHITE BLOOD COUNT 6.2 x10^3/uL (4.8-10.8)
[2023-08-24 15:59] LABS: TROPONIN I HIGH SENSITIVITY 7.9 ng/L (2.3-14.8)
[2023-08-24 16:01] LABS: LIPASE < 10 U/L (11-82)
[2023-08-24 16:16] LABS: ALBUMIN/GLOBULIN RATIO 1.5 (1.0-2.2); ALKALINE PHOSPHATASE 64 IU/L (42-121); ALT ALANINE AMINOTRANSFERASE 17 IU/L (10-60); AST ASPARTATE AMINOTRANSFERASE 27 IU/L (10-42); BILIRUBIN,TOTAL 1.2 mg/dL (0.2-1.0); BUN - BLOOD UREA NITROGEN 13 mg/dL (6-20); CALCIUM 9.5 mg/dL (8.5-10.3); CARBON DIOXIDE - CO2 24 mmol/L (21-32); CHLORIDE 102 mmol/L (101-111); CREATININE 0.7 mg/dL (0.6-1.3); GFR - MDRD 81 (>89); GLUCOSE 152 mg/dL (74-104); POTASSIUM 3.7 mmol/L (3.5-4.5); SODIUM 139 mmol/L (135-145); TOTAL PROTEIN 6.6 g/dL (6.4-8.9)
[2023-08-24 16:34] LABS: B. PARAPERTUSSIS- RESP PCR PAN NOT DETECTED; B. PERTUSSIS- RESP PCR PANEL NOT DETECTED; C. PNEUMONIAE- RESP PCR PANEL NOT DETECTED; CORONAVIRUS 229E-RESP PCR NOT DETECTED; CORONAVIRUS HKU1-RESP PCR NOT DETECTED; CORONAVIRUS NL63-RESP PCR NOT DETECTED; CORONAVIRUS OC43-RESP PCR NOT DETECTED; HUMAN METAPNEUMOVIRUS NOT DETECTED; INFLUENZA A H1 2009- RESP PCR DETECTED; INFLUENZA B - RESP PCR PANEL NOT DETECTED; M. PNEUMONIAE- RESP PCR PANEL NOT DETECTED; PARAINFLUENZA VIRUS 1 NOT DETECTED; PARAINFLUENZA VIRUS 2 NOT DETECTED; PARAINFLUENZA VIRUS 3 NOT DETECTED; PARAINFLUENZA VIRUS 4 NOT DETECTED; RHINOVIRUS/ENTEROVIRUS NOT DETECTED; RSV- RESP PCR PANEL NOT DETECTED; SARS-CoV-2 -RESP PCR PANEL NOT DETECTED
--- NOTE | 2023-08-24 16:34 | XRAY Report ---
PROCEDURE: Chest 1V INDICATIONS: Chest Pain TECHNIQUE: One view of the chest was acquired. COMPARISON: None. FINDINGS: Surgical changes and devices: Surgical clips in left chest wall. Lungs and pleura: Hyperexpanded lung volumes. Flattening of the diaphragms. No pleural effusions or pneumothorax. Lungs are clear. Mediastinum: Cardiomegaly. Bones and chest wall: No suspicious bony lesions. Overlying soft tissues appear unremarkable. IMPRESSION: Cardiomegaly without evidence of acute cardiopulmonary findings Reviewed by: Daniel Carranza MD on 08/24/2023 3:33 PM [place] Approved by: Daniel Carranza MD on 08/24/2023 3:33 PM [facility] Station ID: [id number]
[2023-08-24 17:43] VITALS: BP 125/56; O2SAT 96
== END 2023-08-24 17:52 | disposition home or self-care (01) ==
LOC: ED 14:42
DX: J10.1 Influenza due to other identified influenza virus with other respiratory manifestations (principal); R07.9 Chest pain, unspecified; I10 Essential (primary) hypertension; E78.00 Pure hypercholesterolemia, unspecified; I48.91 Unspecified atrial fibrillation; Z79.01 Long term (current) use of anticoagulants; Z79.899 Other long term (current) drug therapy
CPT/HCPCS: 36415; 80053; 83690; 84484; 85025; 87633; 93005; 99283; 99284

== ENCOUNTER 2023-12-21 09:02 | Outpatient (CLI) | payer MEDICARE, OTHER ==
[2023-12-21 09:57] LABS: CHOL/HDL RATIO 2.9 (<4.4); CHOLESTEROL 130 mg/dL; HDL CHOLESTEROL 45 mg/dL; LDL CHOLESTEROL,CALCULATED 66 mg/dL; LDL/HDL RATIO 1.5 (<4.4); TRIGLYCERIDES 94 mg/dL (48-352); VLDL CHOLESTEROL 19 mg/dL
[2023-12-22 10:12] LABS: ESTIMATED AVERAGE GLUCOSE 137 mg/dL (70-100); HEMOGLOBIN A1c% 6.4 % (4.27-6.07)
== END 2023-12-21 09:03 | disposition home or self-care (01) ==
LOC: LAB 09:02
PROVIDERS: ATTEND Nurse Practitioner Family
DX: E78.2 Mixed hyperlipidemia (principal); E11.9 Type 2 diabetes mellitus without complications; R53.83 Other fatigue
CPT/HCPCS: 36415; 80061; 83036; 83721; 84443